=== PATIENT | female | born 1965 | race Two or more races ===

== ENCOUNTER 2019-07-06 21:23 | Emergency (ER) | payer SELFPAY ==
[~2019-07-06] VITALS: Ht 154.9 cm; Wt 75.0 kg
[2019-07-06] MEDS ORDERED: METF-960 PO (21:36)
[2019-07-06 21:45] LABS: GLUCOSE,POINT OF CARE 378 MG/DL (70-110)
[2019-07-06 22:33] LABS: BASOPHILS % (AUTO) 0.5 % (0.0-2.0); EOSINOPHILS % (AUTO) 0.1 % (1.0-6.0); HEMATOCRIT 40.9 % (36-46); HEMOGLOBIN 13.2 g/dL (12.0-16.0); LYMPHOCYTES # (AUTO) 1.9 K/uL (1.0-4.8); LYMPHOCYTES % (AUTO) 12.1 % (22.0-44.0); MEAN CORPUSCULAR HGB CONC 32.2 G/dL (31.0-37.0); MEAN CORPUSCULAR VOLUME 78 fL (80-100); MONOCYTES # (AUTO) 0.2 K/uL (0.1-1.0); MONOCYTES % (AUTO) 1.4 % (2.0-9.0); NEUTROPHILS # (AUTO) 13.2 K/uL (1.8-7.7); PLATELET COUNT (AUTO) 444 K/uL (150-450); RED BLOOD CELL COUNT(AUTO) 5.27 MIL/uL (4.00-5.20); RED CELL DISTRIBUTION WIDTH 13.8 % (11.5-14.5)
[2019-07-06 22:41] LABS: NEUTROPHILS % (AUTO) 85.9 % (40.0-70.0)
[2019-07-06 22:55] LABS: ALANINE AMINOTRANSFERASE 43 U/L (12-78); ALKALINE PHOSPHATASE 204 U/L (46-116); ANION GAP 12 mmol/L (8-16); ASPARTATE AMINOTRANSFERASE 16 U/L (15-37); BILIRUBIN,TOTAL 0.4 mg/dL (0.1-1.0); CALCIUM, TOTAL 9.4 mg/dL (8.8-10.5); CARBON DIOXIDE 27 mmol/L (22-29); CHLORIDE 98 mmol/L (98-107); CREATININE 0.74 mg/dL (0.60-1.30); GLOMERULAR FILTR. RATE CALC > 60 mL/min (>60); LIPASE 109 U/L (73-393); POTASSIUM 4.2 mmol/L (3.5-5.1); SODIUM SERUM 137 mmol/L (136-145); TOTAL PROTEIN, SERUM 8.7 g/dL (6.4-8.2); UREA NITROGEN, BLOOD 16 mg/dL (7-18)
[2019-07-06 22:57] LABS: GLUCOSE,RANDOM 422 mg/dL (70-110)
[2019-07-07] MEDS ORDERED: SODIUM CHLORIDE 0.9% 500 ML IV ONE (00:30)
[2019-07-07 00:36] LABS: ACETONE,BLOOD NEGATIVE (NEGATIVE)
[2019-07-07 00:49] LABS: APPEARANCE,URINE CLEAR (CLEAR); BILIRUBIN,URINE NEGATIVE (NEGATIVE); GLUCOSE, URINE (UA) >=1000 mg/dL (NEGATIVE); KETONES,URINE >=80 mg/dL (NEGATIVE); LEUKOCYTE ESTERASE ,URINE NEGATIVE (NEGATIVE); NITRATE,URINE NEGATIVE (NEGATIVE); OCCULT BLOOD,URINE NEGATIVE (NEGATIVE); PROTEIN,URINE NEGATIVE (NEGATIVE); UROBILINOGEN,URINE 0.2 mg/dL (<=1.0)
[2019-07-07 00:58] LABS: BACTERIA,URINE None Seen /HPF (None Seen); RBC,URINE None Seen /HPF (0-2); SQUAMOUS EPITHELIAL CELL,UR Rare /LPF (None Seen); WBC,URINE None Seen /HPF (0-5)
[2019-07-07 01:09] LABS: GLUCOSE,POINT OF CARE 387 MG/DL (70-110)
[2019-07-07 01:30] VITALS: BP 135/86
== END 2019-07-07 03:34 | disposition home or self-care (01) ==
LOC: EMS 21:23
DX: E11.65 Type 2 diabetes mellitus with hyperglycemia (principal)
CPT/HCPCS: 93005

== ENCOUNTER 2021-11-16 07:07 | Emergency (ER) | payer MEDICAID ==
[~2021-11-16] VITALS: Ht 157.5 cm; Wt 77.3 kg
[~2021-11-16 07:07] MED LIST: METF-1211 PO
[2021-11-16] MEDS ORDERED: ACETAMINOPHEN 325 MG TABLET PO ONE (08:15)
[2021-11-16 08:47] LABS: BASOPHILS % (AUTO) 0.5 % (0.0-2.0); EOSINOPHILS % (AUTO) 1.4 % (1.0-6.0); HEMATOCRIT 36.7 % (36-46); HEMOGLOBIN 12.1 g/dL (12.0-16.0); LYMPHOCYTES # (AUTO) 3.4 K/uL (1.0-4.8); LYMPHOCYTES % (AUTO) 28.2 % (22.0-44.0); MEAN CORPUSCULAR HEMOGLOBIN 24.2 pg (26.0-34.0); MEAN CORPUSCULAR HGB CONC 32.9 G/dL (31.0-37.0); MEAN CORPUSCULAR VOLUME 74 fL (80-100); MONOCYTES # (AUTO) 0.6 K/uL (0.1-1.0); MONOCYTES % (AUTO) 4.8 % (2.0-9.0); NEUTROPHILS # (AUTO) 7.8 K/uL (1.8-7.7); NEUTROPHILS % (AUTO) 65.1 % (40.0-70.0); PLATELET COUNT (AUTO) 445 K/uL (150-450); RED BLOOD CELL COUNT(AUTO) 4.99 MIL/uL (4.00-5.20); RED CELL DISTRIBUTION WIDTH 15.2 % (11.5-14.5)
[2021-11-16 08:59] LABS: ANION GAP 12 mmol/L (8-16); CALCIUM, TOTAL 9.8 mg/dL (8.8-10.5); CARBON DIOXIDE 25 mmol/L (22-29); CHLORIDE 102 mmol/L (98-107); CREATININE 0.66 mg/dL (0.60-1.30); GLOMERULAR FILTR. RATE CALC > 60 mL/min (>60); GLUCOSE,RANDOM 186 mg/dL (70-110); POTASSIUM 4.2 mmol/L (3.5-5.1); SODIUM SERUM 139 mmol/L (136-145); UREA NITROGEN, BLOOD 10 mg/dL (7-18)
[2021-11-16 09:06] LABS: ALANINE AMINOTRANSFERASE 25 U/L (12-78); ALBUMIN 3.7 g/dL (3.4-5.0); ALKALINE PHOSPHATASE 104 U/L (46-116); ASPARTATE AMINOTRANSFERASE 10 U/L (15-37); BILIRUBIN,TOTAL 0.2 mg/dL (0.1-1.0); TOTAL PROTEIN, SERUM 8.3 g/dL (6.4-8.2)
[2021-11-16 10:00] VITALS: BP 152/76
[2021-11-16] MEDS ORDERED: DICL100G51 TP (10:12)
[2021-11-16] MEDS ORDERED: IBUP-1554 PO (10:12)
[2021-11-16] MEDS ORDERED: TRAM50TA4 PO (10:12)
== END 2021-11-16 10:42 | disposition home or self-care (01) ==
LOC: EMS 07:08
DX: M25.511 Pain in right shoulder (principal); E11.65 Type 2 diabetes mellitus with hyperglycemia; Z90.710 Acquired absence of both cervix and uterus; Z98.890 Other specified postprocedural states
CPT/HCPCS: 29240; 71045; 80053; 84484; 85025; 99284; 36415-L1; 36415-TC

== ENCOUNTER 2023-10-23 15:46 | Emergency (ER) | payer MEDICAID ==
[~2023-10-23] VITALS: Ht 157.5 cm; Wt 72.7 kg
[~2023-10-23 15:46] MED LIST changes: +DICL100G60 TP; +IBUP-1554 PO; +TRAM50TA5 PO
[2023-10-23 16:02] VITALS: TEMP 98.5
[2023-10-23] MEDS: IBUPROFEN 600 MG TABLET PO ONE (16:54)
[2023-10-23] MEDS: ACETAMINOPHEN 500 MG TABLET PO ONE (16:55)
[2023-10-23] MEDS ORDERED: IBUP-1492 PO (17:30)
[2023-10-23] MEDS ORDERED: ACET-3385 PO (17:30)
[2023-10-23 17:56] VITALS: BP 115/85; PULSE 84; RESP 18
== END 2023-10-23 18:10 | disposition home or self-care (01) ==
LOC: EMS 15:46
DX: M25.512 Pain in left shoulder (principal); E11.9 Type 2 diabetes mellitus without complications; Z90.710 Acquired absence of both cervix and uterus; Z98.890 Other specified postprocedural states
CPT/HCPCS: 82962; 99283

== ENCOUNTER 2024-04-14 16:50 | Emergency (ER) | payer OTHER ==
[~2024-04-14] VITALS: Ht 157.5 cm; Wt 77.3 kg
[~2024-04-14 16:50] MED LIST changes: +ACET-3385 PO; +IBUP-1492 PO
[2024-04-14] MEDS ORDERED: METF-1185 PO (16:55)
[2024-04-14 17:02] VITALS: TEMP 98.2
[2024-04-14] MEDS: ONDANSETRON HCL 4 MG/2 ML VIAL IVP ONE (17:37)
[2024-04-14] MEDS: SODIUM CHLORIDE 0.9% 1,000 ML IV ONE (17:37)
[2024-04-14 17:46] LABS: BASOPHILS % (AUTO) 0.2 % (0.0-2.0); EOSINOPHILS % (AUTO) 0.6 % (1.0-6.0); HEMATOCRIT 42.2 % (36-46); HEMOGLOBIN 13.6 g/dL (12.0-16.0); LYMPHOCYTES # (AUTO) 1.7 K/uL (1.0-4.8); LYMPHOCYTES % (AUTO) 9.1 % (22.0-44.0); MEAN CORPUSCULAR HEMOGLOBIN 24.4 pg (26.0-34.0); MEAN CORPUSCULAR HGB CONC 32.2 G/dL (31.0-37.0); MEAN CORPUSCULAR VOLUME 76 fL (80-100); MONOCYTES # (AUTO) 0.6 K/uL (0.1-1.0); NEUTROPHILS # (AUTO) 16.3 K/uL (1.8-7.7); PLATELET COUNT (AUTO) 472 K/uL (150-450); RED BLOOD CELL COUNT(AUTO) 5.55 MIL/uL (4.00-5.20); RED CELL DISTRIBUTION WIDTH 15.7 % (11.5-14.5); WHITE BLOOD COUNT (AUTO) 18.7 K/uL (4.5-11.0)
[2024-04-14 17:47] LABS: NEUTROPHILS % (AUTO) 87.1 % (40.0-70.0)
[2024-04-14 17:51] LABS: ANION GAP 12 mmol/L (8-16); CALCIUM, TOTAL 9.4 mg/dL (8.8-10.5); CARBON DIOXIDE 29 mmol/L (22-29); CHLORIDE 102 mmol/L (98-107); CREATININE 0.79 mg/dL (0.60-1.30); GLOMERULAR FILTR. RATE CALC > 60 mL/min (>60); GLUCOSE,RANDOM 139 mg/dL (70-110); POTASSIUM 3.8 mmol/L (3.5-5.1); SODIUM SERUM 143 mmol/L (136-145); UREA NITROGEN, BLOOD 15 mg/dL (7-18)
[2024-04-14 17:57] LABS: COVID AG,FIA SOURCE NASAL SWAB; SARS-COV2 (COVID) ANTIGEN,FIA Negative (Negative)
[2024-04-14 17:57] LABS: ALANINE AMINOTRANSFERASE 18 U/L (12-78); ALKALINE PHOSPHATASE 114 U/L (46-116); ASPARTATE AMINOTRANSFERASE 14 U/L (15-37); BILIRUBIN,TOTAL 0.6 mg/dL (0.1-1.0); LIPASE 40 U/L (16-77); TOTAL PROTEIN, SERUM 8.5 g/dL (6.4-8.2)
[2024-04-14 18:07] LABS: APPEARANCE,URINE CLEAR (CLEAR); BILIRUBIN,URINE NEGATIVE (NEGATIVE); COLOR,URINE LIGHT YELLOW (YELLOW); GLUCOSE, URINE (UA) >=1000 mg/dL (NEGATIVE); KETONES,URINE 40-60 mg/dL (NEGATIVE); LEUKOCYTE ESTERASE ,URINE NEGATIVE (NEGATIVE); NITRATE,URINE NEGATIVE (NEGATIVE); OCCULT BLOOD,URINE TRACE (NEGATIVE); PH,URINE 5.5 (5.0-8.0); PROTEIN,URINE NEGATIVE (NEGATIVE); SPECIFIC GRAVITIY, URINE 1.035 (1.003-1.030); UROBILINOGEN,URINE <=1.0 mg/dL (<=1.0)
[2024-04-14 18:12] LABS: RBC MORPHOLOGY COMMENT ABNORMAL RBC MORPH
[2024-04-14 18:17] LABS: INFLUENZA TYPE A NEGATIVE FOR TYPE A (NEGATIVE); INFLUENZA TYPE B NEGATIVE FOR TYPE B (NEGATIVE)
[2024-04-14 18:25] LABS: TROPONIN I-HIGH SENSITIVITY 4 ng/L (<51)
[2024-04-14 18:38] LABS: BACTERIA,URINE Few /HPF (None Seen); RBC,URINE 0-2 /HPF (0-2); SQUAMOUS EPITHELIAL CELL,UR Few /LPF (None Seen); WBC,URINE 0-2 /HPF (0-5)
[2024-04-14] MEDS: MAG HYDROX/ALUMINUM HYD/SIMETH ES 30 ML SUSPENSION UDCUP PO ONE (18:56)
[2024-04-14] MEDS: LIDOCAINE 2% VISCOUS 15 ML SOLUTION UDCUP PO ONE (18:56)
[2024-04-14] MEDS ORDERED: 0.9% SODIUM CHLORIDE 10 ML SYRINGE IVP ONE (19:07)
[2024-04-14] MEDS ORDERED: SODIUM CHLORIDE 0.9% 100 ML ONE (19:08)
[2024-04-14] MEDS ORDERED: IOHEXOL 300 MG/ML 100 ML VIAL ONE (19:08)
[2024-04-14 20:00] VITALS: BP 149/56; PULSE 99; RESP 17; O2SAT 98
[2024-04-14] MEDS ORDERED: FAMO20 PO (20:27)
[2024-04-14] MEDS ORDERED: ONDA-104 PO (20:29)
[2024-04-14] MEDS ORDERED: POLY17PO47 PO (20:29)
== END 2024-04-14 21:02 | disposition home or self-care (01) ==
LOC: EMS 16:50
DX: K59.00 Constipation, unspecified (principal); E11.9 Type 2 diabetes mellitus without complications; R10.13 Epigastric pain; Z90.710 Acquired absence of both cervix and uterus; Z20.822 Contact with and (suspected) exposure to COVID-19
CPT/HCPCS: 99285; 74177; 96374; 76705; 96361; 87426; 80048; 80076; 81001; 83690; 84484; 85025; 87804; 36415; 93005; J2405; J7030; J7050; Q9967